=== PATIENT | female | born 1960 | race Caucasian/White ===

== ENCOUNTER 2025-03-09 00:04 | Day surgery (SDC) | payer OTHER, SELFPAY ==
[2025-03-05 13:36] VITALS: BMI 22.5
--- NOTE | 2025-03-05 13:49 | PC.NURSE ---
Report to the Outpatient Waiting Room, entrance under the green pavilion located off [facility], at time _0700_ on date _[id number]_. Planned Procedure Time: _0900_.? Time changes happen often and if your time is changed the preop area will call you the afternoon before. - You and your visitor will be asked to self-screen and do not enter if you have any COVID symptoms. Please call surgeon if you need to reschedule. - A mask is optional within the hospital at this time. Patients may have clear liquids (water, carbonated beverages, clear teas, apple juice) until 3 hours prior to surgery with a maximum of 20 ounces. - No food from midnight until time of surgery and no smoking, or chewing tobacco (or any form of nicotine). No chewing gum, candy or mints. Take only the following medications with a SIP of water on the morning of surgery: ___Levothyroxine DO NOT STOP ANY OF YOUR OTHER PRESCRIPTION MEDICATIONS PRIOR TO SURGERY EXCEPT THE FOLLOWING Hold all vitamins and supplements for 3 days per anesthesiologist. Medications to discontinue per physician Date to take last bazt___[id number]____ Please no make-up, nail portuguese, hairspray, perfume, deodorant, or body powder the day of surgery.? No jewelry (including any body piercings) or valuables the day of surgery, leave them at home.? Please take a shower or bath the night before, or the morning of, surgery with an antibacterial soap.? Wear comfortable, loose fitting clothing. - Jewelry must be removed prior to entering the operating room.? Rings and piercings that are not removed may be cut off. - The hospital will not accept responsibility for valuables.? - Please leave all valuables, including medications, at home the day of surgery. If you are going home after surgery, a licensed local delivery truck driver must drive you home.? - NO public transportation without another adult if you receive anesthesia. - We recommend that an adult stay with you for 24 hours following discharge. - We also recommend that you do not drive, make important decision, drink alcoholic beverages, or take any drugs that were not prescribed by your health care provider for at least 24 hours after your discharge time. Follow any additional instructions given to you from your surgeon. Telephone instructions given to __Cheryl___and asked if any additional questions and then verbalized understanding. Patient advised to call surgeon office or pre surgery nurse liaison [phone] if any additional questions.
[2025-03-09] VITALS (16 sets, daily range): BP systolic 119–152; BP diastolic 78–87; PULSE 91–112; RESP 10–20; TEMP 36.1–36.8; O2SAT 92–99; BMI 22.8
--- OUTSIDE RECORDS SUMMARY | 2025-03-09 00:07 | XMS_ITS | Referral Summary ---
Author Organization [facility] [address] [facility] Address [address] [place] [id number] Care Team Providers Care Mental Health Counselor Name Role Phone Avelino Perez NP Primary Care Provider [phone] Boby ADAMSON MD, Manjeet [facility] [phone] Allergies Active Allergy Reactions Criticality Noted Date Comments Clarithromycin Stomach upset Low 05/10/2020 Levofloxacin Urticaria Medium 08/15/2014 Oxycodone Itching,Nausea And V omiting,Shortness of breath High 04/22/2020 Penicillins Unknown 04/22/2020 Medications Eliquis 5 mg tablet 0 Active HYDROcodone-enoc taminophen (NORCO) 5-325 mg per tablet Take 1 tablet by mouth every 8 (eight) hours as needed 0 Active levothyroxine (Synthroid) 50 mcg tablet Take 50 mcg by mouth daily before breakfast 0 Active levocetirizine (XYZAL) 5 mg tablet Take 5 mg by mouth nightly 0 Active nefazodone (SERZONE) 150 mg tablet Take 225 mg by mouth nightly [address] (CYMBALTA) 30 mg capsule Take 1 tab once daily x 14d, then increase to 2 tabs once daily x 1 week. 30 capsule 0 Active Active Problems Problem Noted Date Diagnosed Date Polyarthralgia 05/22/2020 Overview (06/05/2020): 06/04 labs: neg [place], neg HLA-B27, AVISE negative 06/04 xrays: -SI joints: mild OA (minimal cystic changes of left SI) -Lspine: minimal changes of scattered OA with slight facet arthropathy in lower lumbar spine, most prominent at L4-L5. -Lt knee: mild OA in the medial and patellofemoral compartments, not extensively change since 2014. -Bilat feet: Minimal OA in right MTP joints. -Bilat hands: Mild OA of 1st CMC joints. Right hand/wrist US (06/05/20): Mild synovial thickening in wrist. Moderate synovial thickening in 2nd and 3rd PIP joints. Assessment & Plan (06/05/2020 12:38 PM CDT): Ms. Cordoba is a 60yo female with PMH of hypothyroidism, depression and GERD who presents with polyarthralgia and joint stiffness ongoing since 2010. Hands/feet with stiffness and pain in the AM. Also with lower back/left SI pain, worse with prolonged immobility, since her 30s. Descending stairs and walking for long periods of time will cause knee and ball of foot pain. Was taking ibuprofen then aleve for joint complaints with improvement until she had to go on eliquis for bilateral PEs s/p R RTC repair in February 2020. Now joint pain is worse and tylenol does not offer relief. No CTD symptoms. No significant FH for autoimmune diseases. Recent serologies were negative for the presence of autoantibodies and HLA-B27 was also negative. Radiographic imaging of the hands, feet, lumbar spine, SI joints and left knee revealed only mild scattered osteoarthritis. The right hand/wrist US demonstrated mild synovial thickening in the wrist with moderate synovial thickening in the 2nd and 3rd PIP joints. On exam there is moderate synovitis, soft tissue swelling and tenderness of the right hand. Several tender joints of the left hand with questionable synovitis of the 2nd MCP joint as well as tenderness of the MTPs of the bilateral feet. There is ttp of the left SI joint with FROM of bilateral hips without pain. Negative SLR bilaterally. There is still concern for a potential inflammatory arthritis given her lower back pain and joint stiffness, however NSAIDs cannot be given with eliquis and there is not enough evidence to support starting an immunosuppressive agent. Will continue to monitor symptoms at this time. Fibromyalgia does appear to also be present. Discussed starting Cymbalta, after she finishes the nefazodone, instead of viibryd. Reviewed the potential adverse effects of the medication including, but not limited to, sweating, nausea, sicca sx, headache, somnolence, and/or fatigue. PT was amenable to the plan. Will start Cymbalta 30mg once daily for 14 days then increase to 60mg once daily until next visit. Return in 3 weeks. Sooner if needed. Seen with Dr. Landis. Assessment & Plan (05/22/2020 3:35 PM CDT): Ms. Cordoba is a 60yo female with PMH of hypothyroidism, depression and GERD who presents with polyarthralgia and joint stiffness ongoing since 2010. Hands/feet with stiffness and pain in the AM. Also with lower back/left SI pain, worse with prolonged immobility, since her 30s. Descending stairs and walking for long periods of time will cause knee and ball of foot pain. Was taking ibuprofen then aleve for joint complaints with improvement until she had to go on eliquis for bilateral PEs s/p R RTC repair in February 2020. Now joint pain is worse and tylenol does not offer relief. No CTD symptoms. No significant FH for autoimmune diseases. On exam there is moderate synovitis, soft tissue swelling and tenderness of the right hand. Several tender joints of the left hand without synovitis as well as questionable synovitis with tenderness of the MTPs of the bilateral feet. There is ttp of the left SI joint with FROM of bilateral hips without pain. Symptoms suspicious for spondyloarthropathy, although knee pain appears to be mechanical in nature. Will perform appropriate radiographs, serologies, and right hand US to assess the etiology of symptoms. Return in [address] Landis. Social History Tobacco Use Types Packs/Day Years Used Date Smoking Tobacco: Never Assessed Comments Unknown Sex and Gender Information Value Date Recorded Sex Assigned at Not on file Legal Sex Female 10:19 AM CDT Gender Identity Not on file Sexual Orientation Not on file Last Filed Vital Signs Vital Sign Reading Time Taken Comments Blood Pressure 126/79 06/05/2020 11:12 AM CDT Pulse - - Temperature 36.4 C (97.6 F) 06/05/2020 11:12 AM CDT Respiratory Rate - - Oxygen Saturation - - Inhaled Oxygen Concentration - - Weight 61.7 kg (136 lb) 06/05/2020 11:12 AM CDT Height - - Body Mass Index - - Plan of Treatment Not on file Insurance [employer] Care Teams Mental Health Counselor Relationship Specialty Start Date End Date Avelino Perez NP [address] [place] [address] PCP - General Nurse Practitioner 05/02/20 Manjeet Landis III, MD [address] [place] [address] Consulting Physician Rheumatology 05/02/20
--- OUTSIDE RECORDS SUMMARY | 2025-03-09 00:07 | XMS_ITS | Clinical Summary ---
Author Organization [facility] [address] [facility] Address [address] [place] [id number] Care Team Providers Care Ethics Officer Name Role Phone Avelino Perez NP Primary Care Provider [phone] Boby ADAMSON MD, Manjeet [facility] [phone] Allergies Active Allergy Reactions Criticality Noted Date [...] on file Sexual Orientation Not on file Obstetrics History Last Filed Vital Signs Vital Sign Reading [...] on file Insurance [employer] Care Teams Ethics Officer Relationship Specialty Start Date End Date Avelino Perez NP [address] [place] [address] PCP - General Nurse Practitioner 05/02/20 Manjeet Landis III, MD [address] [place] [address] Consulting Physician Rheumatology 05/02/20
--- OUTSIDE RECORDS SUMMARY | 2025-03-09 00:07 | XMS_ITS | Clinical Summary ---
Author Organization [facility] Address [address] [place] [address] Care Team Providers Care Pulmonology Physician Name Role Phone Jaye Davenport PA-C Primary Care Provider [phone] Social History Tobacco Use Types Packs/Day Years Used Date Smoking Tobacco: Never Assessed [facility] Utilities Answer Date Recorded In the past 12 months has th e electric, gas, oil, or water company threatened to shut off services in your home? No 07/06/2024 Housing Stability Vital Sign Answer Geo e Recorded In the last 12 months, was t here a time when you were not able to pay the mortgage or rent on time? No 07/06/2024 Number of Times Moved in the Last Year Not on fi le 07/06/2024 Homeless in the Last Year Not on file 2023 Comments No Sex and Gender Information Value Date Recorded Sex Assigned at Not on file Legal Sex Female 9:59 PM CDT Gender Identity Not on file Sexual Orientation Not on file Plan of Treatment Health Maintenance Due Date Last Done Comments HIV Screening 1960 Hepatitis C Screening ages 1 8 to 79 once 1960 MMR VACCINES (1 of 1 - Stand hermelinda series) 1963 YEARLY WELLNESS EXAM 1965 DEPRESSION SCREENING 1974 CERVICAL CANCER SCREENING 1983 Colon Cancer Screening 2007 LIPID TESTING 2007 Zoster Vaccine (Recombinant Vaccine) (1 of 2) 01/30/2012 COVID-19 Immunization (1 - 2 season) 2024 Influenza Vaccine 03/16/2025 BREAST CANCER SCREENING 07/06/2025 07/06/2024 ADULT TETANUS 12/14/2033 12/15/2023 RSV Vaccines (1 - 1-dose 75+ series) 2037 HEPATITIS A VACCINES Aged Out No long er eligible based on patient's age to complete this topic HEPATITIS B VACCINES Aged Out No long er eligible based on patient's age to complete this topic HIB VACCINES Aged Out No longer eligi ble based on patient's age to complete this topic HPV VACCINES Aged Out No longer eligi ble based on patient's age to complete this topic IPV VACCINES Aged Out No longer eligi ble based on patient's age to complete this topic MENINGOCOCCAL VACCINE Aged Out No jaxon delmar eligible based on patient's age to complete this topic Meningococcal B Vaccine Aged Out No l onger eligible based on patient's age to complete this topic Pneumococcal Vaccine: Peds t o 50 & At-Risk Patients Aged Out No longer eligible b ased on patient's age to complete this topic ROTAVIRUS VACCINES Aged Out No longer eligible based on patient's age to complete this topic Procedures Procedure Name Priority Date/Time Associated Diagnosis Comments MAMMO SCREENING BILATERAL - DIGITAL W LAURA Routine 07/06/2024 1:18 PM PIPE CAULKER Encounter for screening mammogram for malignant neoplasm of breast from Last 3 Months or Most Recently Relevant to Health Maintenance Results * MAMMO SCREENING BILATERAL - DIGITAL W LAURA (07/06/2024 1:18 PM PIPE CAULKER) Anatomical Region Laterality Modality Breast Bilateral Mammography 07/06/2024 1:15 PM PIPE CAULKER Impressions 07/10/2024 8:23 AM PIPE CAULKER IMPRESSION: 1. BI-RADS Category: 2. Benign findings. 2. Annual screening mammography recommended. A) A negative report should not delay a biopsy if a dominant or clinically suspicious mass is present. B) Adenosis and dense breasts may obscure an underlying neoplasm. C) Study interpreted with computer-aided detection. MQSA BI-RADS Categories: Category 0 - needs additional imaging evaluation. Category 1 - negative. Category 2 - benign findings. Category 3 - probably benign findings, but short interval followup is recommended. Category 4 - suspicious abnormality-biopsy should be considered. Category 5 - highly suggestive of malignancy and appropriate action should be taken. Electronically signed by: Manjeet Multani MD 07/10/2024 08:23 AM PIPE CAULKER RP Narrative 07/10/2024 8:23 AM PIPE CAULKER DIGITAL BILATERAL SCREENING MAMMOGRAM WITH COMPUTER-AIDED DETECTION AND 3-D TOMOSYNTHESIS DATE: 07/06/2024 1:15 PM PIPE CAULKER HISTORY: Screening examination. No complaints listed referable to either breast. Estimated lifetime risk of breast carcinoma 4.5%. COMPARISON: 06/18/2022 and 05/08/2019 mammogram. FINDINGS: Digital 2-D mammography and 3-D tomosynthesis performed of both breasts. Mild fibroglandular densities in the retroareolar regions of both breasts. Minor benign calcification. Multiple skin markers noted both breasts. Parenchymal pattern has similar appearance to the prior studies. BREAST COMPOSITION: There are scattered areas of fibroglandular density. Jaye Davenport PA-C [facility] IMG MAMMO ORDERABLES F inal Result from Last 3 Months or Most Recently Relevant to Health Maintenance Insurance ANTHEM/BCBS Care Teams Pulmonology Physician Relationship Specialty Start Date End Date Jaye Davenport PA-C [address] [place] [id number] PCP - General 07/06/24
--- OUTSIDE RECORDS SUMMARY | 2025-03-09 00:07 | XMS_ITS | Clinical Summary ---
Author Organization [facility] Address [address] [place] [address] Care Team Providers Care Post Splitter Name Role Phone Unavailable Primary Care Provider Unavailabl e Source Comments [facility],non-owned Affiliates and Associated Physician Practices is amultiple site organization consisting of ambulatory clinics and hospital sitesin [place], [place], [place] and [place]. This disclosure is being madepursuant to the Care Everywhere program and may not contain all information available regarding this patient. Last updated 18.[facility] Allergies Active Allergy Reactions Criticality Noted Date Comments Clarithromycin GI Discomfort 05/10/2020 Levofloxacin Urticaria 08/15/2014 Oxycodone Shortness of Breath, Itching,Nausea and/or Vomiting High 04/22/2020 Penicillins Unknown 04/22/2020 Medications * Be aware that medications may not be up to date on this document. Alwaysverify current medications with the patient. HYDROcodone-ac etaminophen (NORCO) 5-325 MG tablet Take 1 tablet by mouth every 8 hours as needed 0 Active nefazodone (SERZONE) 150 MG tablet Take 225 mg by mouth at bedtime 0 Active SYNTHROID 50 MCG tablet Take 50 mcg by mouth daily before breakfast 0 Active fluticasone propionate (FLONASE) 50 MCG/ACT nasal spray [place] 1 spray into each nostril once daily as needed 0 Active levocetirizine (XYZAL) 5 MG tablet Take 5 mg by mouth at bedtime 0 Active Calcium Carbonate-Vit D-Min (CALTRATE 600+D PLUS MINERALS) 600-800 MG-UNIT TABS Take 1 tablet by mouth at bedtime Active vitamin D, cholecalcifero l, 50 MCG (2000 UT) tablet Take 2,000 Units by mouth at bedtime Active MEGARED OMEGA-3 KRILL OIL 500 MG CAPS Take 1 capsule by mouth once daily Active calcium-magnes ium-zinc 333-133-5 MG tablet Take 1 tablet by mouth once daily Active neomycin-bacit racin-polymyxi n (NEOSPORIN) 400-5-5000 topical ointment Apply to affected area 3 times daily as needed Apply to biopsied area on right breast. Active lidocaine (SALONPAS PAIN RELIEVING) 4 % patch Apply 1 patch to skin once daily as needed Apply patch to right shoulder as needed for pain. Active magnesium gluconate (MAGTRATE) 500 MG tablet Take 500 mg by mouth every other day Active apixaban (ELIQUIS) 5 MG tablet Take 2 tablets by mouth twice a day until April 30. 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 Chest pain 04/22/2020 Shortness of breath 04/22/2020 Pleuritic chest pain 04/22/2020 Chest pressure 04/22/2020 Acute saddle pulmonary embolism without acute co r pulmonale 04/22/2020 Acute midline thoracic back pain 04/22/2020 Encounters Date Type Department Care Team Description 01/26/2025 1:33 PM CDT - 01/26/2025 11:59 PM CDT Hospital Encounter [facility] RADIOLOGY [address] [place] [address] Shae Hickey, DOLL MAKER-DRY WALL APPLICATOR Discharge Disposition: Home or Self Care 01/26/2025 1:00 PM CDT - 01/26/2025 1:32 PM CDT Hospital Encounter [facility] - Cardiology [address] [place] [id number] Shae Hickey, DOLL MAKER-DRY WALL APPLICATOR Discharge Disposition: Home or Self Care 01/24/2025 Travel from Last 3 Months Social History Tobacco Use Types Packs/Day Years Used Date Smoking Tobacco: Never Smokeless Tobacco: Never Alcohol Use Standard Drinks/Week Comments Yes 0 (1 standard drink = 0.6 oz pur e alcohol) Occasional PHQ-2 Answer Date Recorded PHQ2 TOTAL SCORE 0 07/01/2021 Comments No Sex and Gender Information Value Date Recorded Sex Assigned at Not on file Legal Sex Female 11:12 AM CDT Gender Identity Not on file Sexual Orientation Not on file Last Filed Vital Signs Vital Sign Reading Time Taken Comments Blood Pressure 134/87 07/01/2021 1:37 PM PHARMACY TECHNICIAN PER DIEM Pulse 85 07/01/2021 1:37 PM PHARMACY TECHNICIAN PER DIEM Temperature 36.4 C (97.5 F) 07/01/2021 1:37 PM PHARMACY TECHNICIAN PER DIEM Respiratory Rate 16 07/01/2021 1:37 PM PHARMACY TECHNICIAN PER DIEM Oxygen Saturation 97% 07/01/2021 1:37 PM PHARMACY TECHNICIAN PER DIEM Inhaled Oxygen Concentration - - Weight 68.3 kg (150 lb 8 oz) 07/01/2021 1:37 PM PHARMACY TECHNICIAN PER DIEM Height 157.5 cm (5' 2) 07/01/2021 1:37 PM PHARMACY TECHNICIAN PER DIEM Body Mass Index 27.53 07/01/2021 1:37 PM PHARMACY TECHNICIAN PER DIEM Plan of Treatment Health Maintenance Due Date Last Done Comments COLOGUARD (AGES 45-75) - COL ON CA SCREENING 1962 COLON MONITORING 1962 COLONOSCOPY - COLON CA SCREENING 1962 CT COLONOGRAPHY - COLON CA SCREENING 1962 Colorectal Cancer Screening 1962 FIT - COLON CA SCREENING 1962 FLEX SIG - COLON CA SCREENING 1962 LIPID TESTING 1962 HIV SCREENING 1977 HEPATITIS C SCREENING 01/25/1980 DTAP/TDAP/TD VACCINES (1 - Tdap) 1981 PAP SMEAR 1983 PNEUMOCOCCAL VACCINE 50+ (1 of 1 - PCV) 01/30/2012 ZOSTER VACCINE (1 of 2) 01/30/2012 Respiratory Syncytial Virus (RSV) Vaccine Pt: or over 60 yrs (1 - Risk 60-74 years 1-dose series) 2022 SCREENING FOR DIABETES 04/24/2023 0, 04/23/2020, 04/22/2020 COVID-19 VACCINE (1 - 2023-2 5 season) 2024 DEPRESSION SCREENING 08/16/2024 INFLUENZA VACCINE (#1) 2025 8, 05/27/2015, 05/18/2013 MAMMOGRAM 07/06/2026 07/06/2024 HEPATITIS B VACCINE Aged Out No longe r eligible based on patient's age to complete this topic HIB VACCINE Aged Out No longer eligi ble based on patient's age to complete this topic HPV VACCINE Aged Out No longer eligi ble based on patient's age to complete this topic MENINGOCOCCAL (Group B) VACCINE SHARED DECISION-MAKING Aged Out No longer eligible based on patient's age to complete this topic MENINGOCOCCAL GROUPS A/C/Y/W VACCINE Aged Out No longer eligible b ased on patient's age to complete this topic Procedures Procedure Name Priority Date/Time Associated Diagnosis Comments XR CHEST 2VW Routine 01/26/2025 1:37 PM CDT Personal history of pulmonary embolism EKG 12-LEAD Routine 01/26/2025 1:16 PM CDT Hx pulmonary embolism BASIC METABOLIC PANEL (CALCIUM TOTAL) STAT 04/24/2020 8:13 AM CDT from Last 3 Months or Most Recently Relevant to Health Maintenance Results * XR CHEST 2 VWS PA AND LAT [id number] (01/26/2025 1:37 PM CDT) Anatomical Region Laterality Modality Chest Computed Radiogr aphy 01/26/2025 4:09 PM CDT Narrative 01/26/2025 4:10 PM CDT PA & Lateral Chest INDICATION: Z86.711: Personal history of pulmonary embolism, shortness of breath COMPARISON: none available FINDINGS: There is no focal infiltrate or consolidation. There is no pleural effusion or pneumothorax. A mass is not detected. The heart size is normal. > Interpreting Provider: Antoine Luke JR, MD on 01/26/2025 4:10 PM Procedure Note Antoine Luke MD - 01/26/2025 PA & Lateral Chest INDICATION: Z86.711: Personal history of pulmonary embolism, shortnessof breath COMPARISON: none available FINDINGS: There is no focal infiltrate or consolidation. There is no pleural effusion or pneumothorax. A mass is not detected. The heart size is normal. > Interpreting Provider: Antoine Luke JR, MD on 01/26/2025 4:10 PM Shae Hickey APRN-[facility] DIAGNOSTIC IMAGING O RDERABLES Final Result * EKG 12-LEAD (01/26/2025 1:16 PM CDT) Ventricular Rate 81 BPM [facility] Atrial Rate 81 BPM [facility] P-R Interval 136 ms [facility] QRS Duration ms 74 ms [facility] Q-T Interval ms 388 ms [facility] QTC Calculation (Bezet) 450 ms [facility] Calculated P [place] 35 degrees [facility] Calculated R [place] 69 degrees [facility] Calculated T [place] 44 degrees [facility] Interpretation EKG Normal sinus rhythm Normal ECG When compared with ECG of 22-APR-2020 11:46, T wave amplitude has increased in Anterior leads Confirmed by MD JORGE, DARWIN ([id number]) on 01/31/2025 10:33:27 AM [facility] 01/26/2025 1:16 PM CDT 01/31/2025 10:33 AM CDT Shae Hickey APRN-[facility] ECG ORDERABLES Edit ed Result - Final [facility] * BASIC METABOLIC PANEL (CALCIUM TOTAL) (04/24/2020 8:13 AM CDT) Glucose 103 70 - 125 mg/dL 04/24/2020 8:39 AM CDT [facility] Sodium 139 136 - 145 mmol/L 04/24/2020 8:39 AM CDT [facility] Potassium 4.3 3.4 - 4.5 mmol/L 04/24/2020 8:39 AM CDT [facility] Chloride 107 98 - 107 mmol/L 04/24/2020 8:39 AM CDT [facility] CO2 24 22 - 29 mmol/L 04/24/2020 8:39 AM CDT [facility] Calcium 8.99 8.4 - 10.2 mg/dL 04/24/2020 8:39 AM CDT [facility] Anion Gap 12 10 - 20 mmol/L 04/24/2020 8:39 AM CDT [facility] BUN 12.4 9.8 - 20.1 mg/dL 04/24/2020 8:39 AM CDT [facility] Creatinine 0.79 0.57 - 1.11 mg/dL 04/24/2020 8:39 AM CDT [facility] eGFR by MDRD >60 >60 mL/min/1.7 3m2 04/24/2020 8:39 AM CDT [facility] eGFR by MDRD >60 >60 mL/min/1.7 3m2 04/24/2020 8:39 AM CDT [facility] Blood BLOOD SPECIMEN / Unknown Lab Venipuncture / Unknown 04/24/2020 8:13 AM CDT 04/24/2020 8:18 AM CDT Jolly Domingo MD LAB - CHEMISTRY ORDERAB LES Final Result [facility] [address] [place] [address], [facility] from Last 3 Months or Most Recently Relevant to Health Maintenance Insurance Advance Directives * Full Code (Latest Code Status on File) Date Activated Date Inactivated Comments 04/22/2020 3:04 PM 04/24/2020 4:58 PM
[2025-03-09] MEDS: TRANEXAMIC ACID 1,000MG/ISO100 1,000 MG/100 ML BAG 200 MG IVPB (07:44)
[2025-03-09] MEDS: LACTATED RINGERS 1,000 ML 30 ML IV CONT ×2 (07:45→14:31)
--- NOTE | 2025-03-09 08:29 | WPDANESEPPF ---
Anes - Initial Pre Proc Eval Procedure: Operation Date: 03/09/25 09:00 Proposed Procedures p Bilateral Breast Augmentation - Barrett Trevino MD s Abdominoplasty with Liposuction - Barrett Trevino MD Date/Time: 03/09/25 08:29 Surgeon: Barrett Trevino MD Pre Op Diagnosis: Micromastia, Skin Laxity Patient Data Age: 65 Gender: F Height: 1.56 m Weight: 55.7 kg Allergies Allergy/AdvReac Type Severity Reaction Status Date / Time levofloxacin (From [employer]) Allergy Severe Hives Verified 03/09/25 07:41 oxycodone AdvReac Severe Itching Verified 03/09/25 07:41 Home Medications ?Medication ?Instructions ?Recorded ?Confirmed ?Type duloxetine 30 mg capsule,delayed 60 mg PO HS 03/05/25 03/05/25 History release levothyroxine 50 mcg tablet 50 mcg PO DAILY 03/05/25 03/09/25 History (Synthroid) loratadine 10 mg tablet (Claritin) 10 mg PO DAILY 03/05/25 03/05/25 History [id number]-[id number]-FA 200 tablet PO HS 03/05/25 History mg-0.4 mg chewable tablet solifenacin 10 mg tablet 10 mg PO HS 03/05/25 03/05/25 History trazodone 50 mg tablet 50 mg PO HS 03/05/25 03/05/25 History Laboratory Tests 03/09/25 07:24 Cotinine Negative Patient hx anesthesia problems: post op nausea/vomiting Family hx anesthesia problems: none Results Review: All pre-operative results and documents have been reviewed as part of the pre-operative evaluation. [facility] Social History Social History Smoking packs per day: 1 Smoking cigarettes per day: 20.0 Years smoked: 4 Smoking pack-years: 4.00 Smoking status: Former smoker Tobacco type: cigarettes Smoking end date: 03/05/82 Alcohol intake: current Drinks per week: 3 Living arrangements: with family Spiritual care concerns: No Anes - Eval Final PreProcedure Day of Procedure 03/09/25 08:29 Patient weight: normal Heart: regular rate and rhythm Lungs: clear to auscultation Airway: Mallampati scale class II Neurological: alert and oriented Last oral intake: >/= 8 hours ASA classification: II Emergent: no Anesthetic plan: proceed Anesthesia type and monitoring: general ETT and standard monitoring Results Review: All pre-operative results and documents have been reviewed as part of the pre-operative evaluation. Informed Consent: The patient's anesthetic plan and its attendant risks and benefits were discussed with the patient/family/POA. Questions were solicited and answers provided to the satisfaction of the patient/family/POA.
[2025-03-09] MEDS: SCOPOLAMINE 1 MG PATCH 1 PATCH TRANSDERM (08:45)
--- NOTE | 2025-03-09 08:52 | WPDHPUPDATE1 ---
History and Physical Update Update Date/Time: 03/09/25 08:52 History and Physical has been reviewed, including an updated exam of the patient. There are NO changes in the patient's condition. Risks, benefits, and alternatives have been discussed and questions answered. Patient agrees to proceed with procedure.
--- NOTE | 2025-03-09 08:56 | P.OP_ITS ---
Procedure Note - Detailed Date of Procedure 03/09/25 Pre-op Diagnosis Micromastia, Skin Laxity Post-op Diagnosis Same Procedure Performed 1. Bilateral augmentation mammaplasty 2. Progressive tension abdominoplasty with suction lipectomy Surgeon Barrett Trevino MD Anesthesia General Findings Implants: Bilateral Price Amanda SoftTouch 340cc Subfascial Right: REF# [id number] SN [id number] Left: REF# [id number] Lipoaspirate: 3,600 cc Tissue removed: 965.2 grams Description of Procedure They are here today for the above procedures. Previously and again today the risks, benefits, alternatives were discussed in extensive detail. I wanted them to be very realistic about the risks involved as well as expectations. We discussed aftercare and what to monitor for. I was very upfront about the risks of wound breakdown leading to loss of skin, open wounds, and need for additional procedures with permanent abdominal deformity. We discussed DVT/PE risks and management. Made sure answered all of their questions to their satisfaction today and consent was obtained. She was marked in the preoperative holding area with their verification. The patient was taken to the operating room. Anesthesia was provided by anesthesiology. A Davis catheter was started. Posterior: Placed prone on the operating room table with care taken to protect from injury. Prepped and draped in a standard sterile fashion. A surgical time-out was taken. Stab incisions were made and tumescent solution was infiltrated. Once adequate time was allowed for hemostasis a 5mm basket and 4mm joby cannula were utilized to complete suction lipectomy based on S.A.F.E. technique in multiple planes and passes. Suction lipectomy continued to result based on pre-operative planning, intra-operative observation, and rolling pinch test which were in full agreement. Breast: Patient was then placed supine with care taken to protect from injury. Tegaderm nipple Tapia were placed. A 15 blade used to make an incision along the inframammary fold. Dissection was continued at 45 degree angle until the chest wall as identified. I elevated a subfascial pocket in the appropriate dimensions based on our pr eoperative planning for the implant. I then copiously irrigated with saline solution and verified a strict hemostasis. Next the use a triple antibiotic and Betadine containing solution to irrigate the pocket. I washed my gloves with the triple antibiotic and Betadine solution. We washed the implant immediately upon opening it with this solution and only opened it when we needed it. I used implant funnel and no-touch technique. The implant was introduced into the pocket using the funnel. Having verified positioning of the implant this was closed using 2-0 PDS. Low volume suction lipectomy was completed laterally on the breast for contour using a 4mm joby cannula. Finished closure with 3-0 Monocryl in a running subcuticular 4-0 Monocryl followed by tissue glue. Abdomen I placed the patient in a flexed position to verify the upper and lower markings would reach. I then placed supine. A thorough abdominal examination was completed. Stab incisions were made and tumescent solution infiltrated. Stab incisions were made and tumescent solution was infiltrated. Once adequate time was allowed for hemostasis a 5mm basket and 4mm joby cannula were utilized to complete suction lipectomy based on S.A.F.E. technique in multiple planes and passes. Suction lipectomy continued to result based on pre-operative planning, intra-operative observation, and rolling pinch test which were in full agreement. A 10 blade was used to make the upper incision. I continued dissection down to the level of fascia. Elevated just what was necessary for repair of the diastasis. I then again flexed the bed to verify the upper skin flap would reach the lower markings without tension. Once verified I placed her supine once again and a 10 blade used to make the lower incision. I elevated up to level the umbilicus and left the umbilicus intact on a well-vascularized stalk. The intervening tissue was removed. A 2 mm blunt cannula with 0.5% bupivacaine was injected deep to the fascia bilaterally. I plicated the diastasis recti using 0 PDO Stratafix barbed suture. This was in 2 separate layers using 2 separate sutures as well. After the patient was flexed (below) plicated the fascia with 0 PDO Stratafix in two separate layers. The patient was flexed and starting from superior to inferior began plication using 2-0 Vicryl to obliterate all space in a standard progressive tension fashion. At the umbilicus I marked out the location of the skin and inset this with 3-0 Monocryl and 4-0 Vicryl. I continued the remainder of the plication using 2-0 Vicryl until I reached my lower planned scar line. I trimmed any excess skin of the upper flap making sure this was a tension-free closure. 15 Shon drain was placed. I then approximated using a 3 point suture with 2-0 Vicryl followed by 2-0 PDO Stratafix, 3-0 Stratafix ,running subcuticular 4-0 Monocryl, and tissue glue. Fluffs, surgical bra, and an abdominal binder were placed. The patient was transferred to the bed in a flexed position. Awoken and taken to the PACU without difficulty. All instrument and sponge counts were correct at the end of the case. Estimated Blood Loss 75 Drains Yes (15 Shon) Packing No Pathology None sent Complications No immediate complications Condition Stable Disposition PACU
[2025-03-09] MEDS: NACL 0.9% IRRIG POUR BOTTLE 900 ML, GENTAMICIN SULFATE INJ 160 MG, ceFAZolin 2 GM, POVI... IRRIGATION (08:59)
[2025-03-09] MEDS: BUPIVACAINE/EPINEPHRINE 0.5% 30 ML VIAL 60 ML INFILTRATE (08:59)
[2025-03-09] MEDS: ceFAZolin 2 GM in SODIUM CHLORIDE 0.9% IV 50 ML 100 ML IVPB (08:59)
[2025-03-09] MEDS: LACTATED RINGERS IRRIG 1,000 ML, LIDOCAINE 1% LOCAL INJ 50 ML, EPINEPHrine HCL INJ 1 MG... INFILTRATE (08:59)
[2025-03-09] MEDS: fentaNYL CITRATE INJ (*CRX) 100 MCG/2 ML VIAL 25 MCG IV PUSH (15:09)
--- NOTE | 2025-03-09 16:35 | SUR.PHASEI ---
1620: RN called Dr. Trevino about admitting patient because she is just too drowsy to get up next door (Phase 2) and go home after 2 hours in PACU.
--- NOTE | 2025-03-09 18:35 | ADMGEN ---
This patient, Annetta Cordoba, was admitted to [facility] Surg Room 302-01. Patient/family oriented to hospital policies and general routines including ID bracelet, bed and alarms, visiting hours, pain management, procedures, bathroom and other care routines, personal items, smoking policy, room service/diet, and visiting hours. Information on how to activate the Rapid Response Team has been discussed. Patient/Family are encouraged to report perceived risks to care and to ask questions if they do not understand what they are told or what they should do.
[2025-03-09 19:30] LABS: Estimated CRCL calculation 74 ml/min; Estimated Glomerular Filt Rate > 60
[2025-03-09] MEDS: LACTATED RINGERS 1,000 ML 125 ML IV CONT (19:37)
[2025-03-09] MEDS: carisoprodoL (*CRX) 350 MG TABLET PO (19:38)
[2025-03-09] MEDS: HYDROcodone/acetaminophen (*CRX) 5-325 MG TABLET 1 TAB PO (19:38)
[2025-03-09] MEDS: ONDANSETRON INJ 4 MG/2 ML VIAL IV PUSH (19:41)
[2025-03-09] MEDS: MORPHINE SULFATE (*CRX) 2 MG/ML INJ IV PUSH (21:44)
[2025-03-09] MEDS: DOCUSATE SODIUM 100 MG CAPSULE PO (21:44)
[2025-03-09] MEDS: ENOXAPARIN 40 MG/0.4 ML SYRINGE SUB-Q (21:45)
[2025-03-10 00:10] VITALS: BP 112/68; PULSE 93; RESP 20; TEMP 36.3; O2SAT 96
[2025-03-10] MEDS: carisoprodoL (*CRX) 350 MG TABLET PO ×2 (01:36→06:15)
[2025-03-10] MEDS: ONDANSETRON INJ 4 MG/2 ML VIAL IV PUSH (01:36)
[2025-03-10] MEDS: HYDROcodone/acetaminophen (*CRX) 5-325 MG TABLET 1 TAB PO ×2 (01:38→08:51)
[2025-03-10] MEDS: LEVOTHYROXINE SODIUM 50 MCG TABLET PO (06:15)
--- NOTE | 2025-03-10 06:47 | WPDPN ---
Progress Note: A&P Assessment and Plan (1) Skin laxity: Code(s): L57.4 - Cutis laxa senilis Status: Acute Assessment and Plan: Doing well after bilateral breast augmentation and progressive tension abdominoplasty with suction lipectomy. Will discharge home. Today we had a lengthy discussion about the care. Activity limitations. What to monitor for. What is an emergency and when to dial 911 / proceed to the ER. This was a lengthy open ended conversation making sure they were well informed. Answered all their questions. They voiced a clear understanding. Will discharge home. Call with any questions or concerns in the meantime. (2) Localized adiposity: Code(s): E65 - Localized adiposity Status: Acute (3) Micromastia: Code(s): N64.82 - Hypoplasia of breast Status: Acute Subjective Date/time seen: 03/10/25 06:47 Interval history: Doing well after bilateral breast augmentation and progressive tension abdominoplasty with suction lipectomy. She was slow to wake from anesthesia so we kept her overnight. Much improved today. Ambulating. Pain controlled. No nausea / vomiting. No fevers / chills. No shortness of breast. No chest pain. No calf tenderness. Review of Systems Review of Systems: All systems reviewed & are unremarkable except as noted in HPI and below Exam Narrative: Alert & Oriented NOD Respiratory unlabored Breast are healing well. No signs of infection. No hematoma. No seroma. Good color and capillary refill. Abdomen is healing well. No signs of infection. No hematoma. No seroma. Good color and capillary refill. No calf tenderness. Negative Seth's Objective Data Vital Signs Vital Signs: Vital Signs - 24 hr 03/09/25 14:31 03/09/25 14:45 03/09/25 15:00 Temperature 36.3 C L Pulse Rate 112 H 104 H 106 H Respiratory Rate 16 12 12 Blood Pressure 119/79 141/78 H 147/82 H Pulse Oximetry 99 97 99 Oxygen Delivery Simple Face Mask Simple Face Mask Simple Face Mask Oxygen Flow Rate 6 8 8 03/09/25 15:15 03/09/25 15:30 03/09/25 15:45 Temperature Pulse Rate 102 H 102 H 104 H Respiratory Rate 12 10 L 14 Blood Pressure 137/78 149/87 H 141/82 H Pulse Oximetry 97 97 99 Oxygen Delivery Nasal Cannula Nasal Cannula Nasal Cannula Oxygen Flow Rate 3 2 2 03/09/25 16:00 03/09/25 16:15 03/09/25 16:30 Temperature Pulse Rate 103 H 103 H 105 H Respiratory Rate 14 14 16 Blood Pressure 149/82 H 152/84 H 138/82 Pulse Oximetry 99 99 98 Oxygen Delivery Nasal Cannula Room Air Nasal Cannula Oxygen Flow Rate 2 2 03/09/25 16:45 03/09/25 17:00 03/09/25 17:15 Temperature Pulse Rate 106 H 100 102 H Respiratory Rate 16 12 14 Blood Pressure 147/86 H 137/87 131/81 Pulse Oximetry 99 94 93 Oxygen Delivery Nasal Cannula Room Air Room Air Oxygen Flow Rate 2 03/09/25 17:30 03/09/25 17:50 03/09/25 18:19 Temperature 36.5 C 36.8 C Pulse Rate 99 102 H 100 Respiratory Rate 14 20 20 Blood Pressure 133/87 142/83 H 145/85 H Pulse Oximetry 92 94 98 Oxygen Delivery Room Air Room Air Oxygen Flow Rate 03/09/25 20:30 03/10/25 00:10 Temperature 36.1 C L 36.3 C L Pulse Rate 91 93 Respiratory Rate 18 20 Blood Pressure 139/81 112/68 Pulse Oximetry 98 96 Oxygen Delivery Oxygen Flow Rate Intake/Output Intake/Output: Intake & Output 03/07/25 03/08/25 03/09/25 03/10/25 23:59 23:59 23:59 23:59 Intake Total 2050 100 Output Total 20 70 Balance 2030 30 Meds/Results Medications: Active Medications Generic Name Dose Route Start Last Admin Trade Name Freq PRN Reason Stop Dose Admin Hydrocodone Bitart/Acetaminophen 1 tab 03/09/25 18:19 03/10/25 01:38 Hydrocodone/Acetaminophen (*Crx) 5-325 Mg Tablet PO 1 tab Q6H PRN Administration Pain Rated 4-6 Carisoprodol 350 mg 03/09/25 18:19 03/10/25 06:15 Carisoprodol (*Crx) 350 Mg Tablet PO 350 mg Q6HR ANYA Administration Docusate Sodium 100 mg 03/09/25 21:00 03/09/25 21:44 Docusate Sodium 100 Mg Capsule PO 100 mg Q12HR ANYA Administration Duloxetine HCl 60 mg 03/09/25 21:00 03/09/25 21:44 Duloxetine Hcl 30 Mg Capsule.Dr PO 60 mg HS ANYA Administration Enoxaparin Sodium 40 mg 03/09/25 20:00 03/09/25 21:45 Enoxaparin 40 Mg/0.4 Ml Syringe SUB-Q 40 mg DAILY@2000 [facility] Administration Lactated Ringer's 1,000 mls @ 125 mls/hr 03/09/25 18:19 03/10/25 06:13 Lr - Lactated Ringers Iv IV CONT Not Given .Q8H ANYA Levothyroxine Sodium 50 mcg 03/10/25 06:30 03/10/25 06:15 Levothyroxine Sodium 50 Mcg Tablet PO 50 mcg DAILY@0630 [facility] Administration Loratadine 10 mg 03/10/25 09:00 Loratadine 10 Mg Tablet PO DAILY [facility] Morphine Sulfate 2 mg 03/09/25 18:19 03/09/25 21:44 Morphine Sulfate (*Crx) 2 Mg/Ml Inj IV PUSH 2 mg Q2H PRN Administration Pain 7-10 Ondansetron HCl 4 mg 03/09/25 18:19 03/10/25 01:36 Ondansetron Inj 4 Mg/2 Ml Vial IV PUSH 4 mg Q6H PRN Administration Nausea Labs Labs: Laboratory Results - last 24 hr 03/09/25 03/09/25 07:24 19:04 Creatinine 0.50 L Estim Creat Clear Calc 74 Estimated GFR > 60 Cotinine Negative
--- NOTE | 2025-03-10 06:50 | P.DS_ITS ---
DS: Admitting Diagnosis Discharge Date 03/10/2025 Admitting Diagnosis Skin laxity Localized adiposity Micromastia DS: Discharge Diagnosis Discharge Diagnosis (1) Skin laxity: Code(s): L57.4 - Cutis laxa senilis Status: Acute (2) Localized adiposity: Code(s): E65 - Localized adiposity Status: Acute (3) Micromastia: Code(s): N64.82 - Hypoplasia of breast Status: Acute DS: Summary Hospital Course Hospital Course: She underwent bilateral breast augmentation and progressive tension ab dominoplasty with suction lipectomy. Postoperatively was slow to wake from anesthesia. Much improved overnight. Doing well this AM and will discharge home. Time Spent with Patient Time attestation: Total time spent providing and/or coordinating discharge services: Exam Narrative: Alert & Oriented NOD Respiratory unlabored Breast are healing well. No signs of infection. No hematoma. No seroma. Good color and capillary refill. Abdomen is healing well. No signs of infection. No hematoma. No seroma. Good color and capillary refill. No calf tenderness. Negative Seth's DS: Data Data Completed and Pending Labs on day of discharge: Labs from last 24 hours 03/09/25 03/09/25 19:04 07:24 Creatinine 0.50 L Estim Creat Clear Calc 74 Estimated GFR > 60 Cotinine Negative Discharge Plan Discharge Patient Disposition: Home Discharge Instructions: POST OPERATIVE DISCHARGE INSTRUCTIONS BARRETT TREVINO M.D. [facility] [address] [place] [address] * No driving for 24 hours after anesthesia and while you are taking pain medication. * Take all prescribed medication as directed * Diet as tolerated. * No lifting or activity that raises blood pressure for 48 hours. * Regular walking / ambulation. * May shower 24 hours after surgery. Once you shower do not take pain medication before showering as the combination of medication and heat may cause you to feel dizzy or pass out. * No pools or tubs for 2 weeks. * Slowly stand up straight as tolerated. * No straining or lifting more than 20 pounds. * If no bowel movement within 24 hours may use laxative. * Call with any questions or concerns. * Dressing Care: Continue abdominal binder / foam / surgical bra 23 hours per day. If you have any questions or concerns, please call the office . If it is after hours you will be directed to the [employer] [facility]. Shortness of breath, chest pain, or other medical emergency dial 911 / proceed to the Em ergency Room. Patient Language: [place] Stand Alone Forms: General Discharge Instructions Follow-up/Referrals: Barrett Trevino MD [Physician] - Other (Wednesday03/12/2025) Discharge Orders: Discharge Order (Routine); Ordered 03/10/25 Ordered By: Barrett Trevino Discharge Medications: Continued levothyroxine [Synthroid] 50 mcg tablet 50 mcg PO DAILY loratadine [Claritin] 10 mg tablet 10 mg PO DAILY duloxetine 30 mg capsule,delayed release(DR/EC) 60 mg PO HS trazodone 50 mg tablet 50 mg PO HS solifenacin 10 mg tablet 10 mg PO HS myffyozmlvpm-uxp-jymguhz-FA 200-0.4 mg tablet,chewable PO HS
[2025-03-10] MEDS: LORATADINE 10 MG TABLET PO (08:51)
[2025-03-10] MEDS: DOCUSATE SODIUM 100 MG CAPSULE PO (08:51)
== END 2025-03-10 10:15 | disposition home or self-care (01) ==
LOC: ANHSURGERY 09:02 → ANH3MEDSUR 18:22
PROVIDERS: Visit Provider Surgery Plastic and Reconstructive Surgery
PROC: (CPT 19325; principal; 2025-03-09 09:00)
PROC: (CPT 19325; 2025-03-09 09:00)
DX: Z41.1 Encounter for cosmetic surgery (principal); N64.82 Hypoplasia of breast; L57.4 Cutis laxa senilis; Z87.891 Personal history of nicotine dependence
CPT/HCPCS: 19325; 15877; 15830; 15847; 36415; 80307; 82565; J0690; A9270; J0166; J1100; J1171; J1580; J1650; J2003; J2004; J2250; J2270; J2405; J2704; J3010; J7120